=== PATIENT | female | born 1970 | race Asian ===

== ENCOUNTER 2024-07-31 14:46 | Outpatient (AMB) | payer OTHER, SELFPAY ==
--- NOTE | 2024-07-31 14:49 | MHC.PC.OV ---
Vital Signs 07/31/24 14:56 Height 5 ft 3.58 in Weight 146 lb 2 oz BMI 25.4 BP 96/58 L Blood Pressure Location Rt brachial Position Sitting Respiration 12 Pulse 66 Pulse Source Pulse Oximeter Temp 98.2 F Temp Source Oral Pulse Oximetry (%) 96 Oxygen Delivery Method Room Air Intake Visit Reasons: NEW PATIENT APPOINTMENT Intake Note: New patient visit Email Marketing Executive Required: No Allergies acetaminophen [From Percocet] Allergy (Severe, Verified 07/31/24 14:54) Nausea oxycodone [From Percocet] Allergy (Severe, Verified 07/31/24 14:54) Nausea Tobacco use date assessed: 07/31/24 Dental Screening Dental Screen Date: 07/31/24 Did you have a dental visit in the last 12 months?: Yes Did you have a dental problem in the last 6 months where you did not have access to dental care?: No Was dental information given to patient?: Patient has dentist HPI HPI Comments History of Present Illness Details This is a 53 year old female with a past medical history of hypothyroid presenting to [facility] care. She was following at an [facility] facility for primary care in [facility]. Continues to live in [place] but works in [place] She was diagnosed with underactive thyroid a few years ago. Says it was during a lot of stress. She is wondering if she still needs the medication. She has been following with podiatry in [place]. Would like to see someone in [place]. Currently on terbanifine for onychomycoses. Cologuard: less than 3 years ago Mammogram: gets annually in [facility] CONSTITUTIONAL: Denies weight loss, fever and chills. HEENT: Denies changes in vision and hearing. RESPIRATORY: Denies SOB and cough. CV: Denies palpitations and CP GI: Denies abdominal pain, nausea, vomiting and diarrhea. : Denies dysuria and urinary frequency. MSK: Denies new myalgia and joint pain. SKIN: Denies rash and pruritus. NEUROLOGICAL: Denies headache PSYCHIATRIC: Denies recent changes in mood. PHYSICAL EXAM: GENERAL: Alert and oriented x 3. NAD EYES: EOMI. Anicteric. HENT: Moist mucous membranes. No scleral icterus. No cervical lymphadenopathy. LUNGS: Clear to auscultation bilaterally. CARDIOVASCULAR: Regular rate and rhythm. No murmur. No JVD. ABDOMEN: Soft, non-tender +bs EXTREMITIES: No edema. Non-tender. SKIN: No rashes or lesions. Warm. NEUROLOGIC: No focal neurological deficits. CN II-XII grossly intact PSYCHIATRIC: Cooperative. Appropriate mood and affect [facility] Surgical History (Updated 07/31/24 @ 15:38 by Kathia Bowman MD) Status post left partial knee replacement Family History (Updated 07/31/24 @ 14:56 by Roxie Garcia CMA) Other Family history unknown Social History Housing: House Patient Tobacco Use Status: Never used Tobacco e-Cigarette/Vaping Use: Never Used Second Hand Smoke Exposure: No service: No Current occupational status: employed Current occupation: Educator Current occupational exposures/hazards: No Cognitive needs: No Hearing needs: No Vision needs: No Questionnaire PHQ-9 Over the last 2 weeks, how often have you been bothered by any of the following problems? 1. Little interest or pleasure in doing things: not at all 2. Feeling down, depressed, or hopeless: not at all 3. Trouble falling or staying asleep, or sleeping too much: not at all 4. Feeling tired or having little energy: not at all 5. Poor appetite or overeating: not at all 6. Feeling bad about yourself - or that you are a failure or have let yourself or your family down: not at all 7. Trouble concentrating on things, such as reading the newspaper or watching television: not at all 8. Moving or speaking so slowly that other people could have noticed. Or the opposite - being so fidgety or restless that you have been moving around a lot more than usual: not at all 9. Thoughts that you would be better off or of hurting yourself in some way: not at all Total score: 0 Depression Screening Interpretation: Negative (neg) Depression Screening Done: Yes 34388 - PHQ-9 Billing: Yes Source: Developed by Drs. Acosta Ya, Aranza Preciado, Julian Pascual and colleagues, with an educational ezio from [employer]. Thrive Questionnaire Date Thrive assessed: 07/28/24 I am a: Patient What is your living situation today?: I have a steady place to live Within the past 12 months, did the food you bought not last and you didn't have the money to get more?: Never true Within the past 12 months, did you worry whether your food would run out before you got money to buy more?: Never true Do you have trouble paying for medicines?: No Do you have trouble getting transportation to medical appointments?: No Do you have trouble paying your heating and electricity bill?: No Do you have trouble taking care of your child, family member or friend?: No Do you have trouble with day-to-day activities such as bathing, preparing meals, shopping, managing finances, etc.?: No Are you currently unemployed and looking for a job?: No Are you interested in more education?: I choose not to answer this question Please select the resources that you would like help with: None Currently or been in a relationship where the following occur: I choose not to answer THRIVE Score: 0 AUDIT C Alcohol Use Questionnaire (AUDIT-C) 1. How often do you have a drink containing alcohol?: Monthly or less 2. How many drinks containing alcohol do you have on a typical day when you are drinking?: 1 or 2 3. How often do you have six or more drinks on one occasion?: Never Total Score: 1 JIM-7 AMB Questionnaire JIM-7 Date JIM - 7 assessed: 07/31/24 Feeling nervous, anxious, or on edge: 0 = Not at all Not being able to stop or control worryin = Not at all Worrying too much about different things: 0 = Not at all Trouble relaxin = Not at all Being so restless that it is hard to sit still: 0 = Not at all Becoming easily annoyed or irritable: 0 = Not at all Feeling afraid as if something awful might happen: 0 = Not at all Total JIM-7 score (0-4 normal; 5-9 mild; 10-14 moderate; 15-21 severe): 0 Source: Developed by Drs. Acosta Ya, Aranza Preciado, Julian Pascual and colleagues, with an educational ezio from [employer]. JIM-7 Assessment Billing JIM-7 Assessment Tool: JIM-7 Assessment 15566 Physical exam (Primary Care) Vital Signs: Last Vital Signs Temp 98.2 F 07/31/24 14:56 Pulse 66 07/31/24 14:56 Resp 12 07/31/24 14:56 BP 96/58 L 07/31/24 14:56 Pulse Ox 96 07/31/24 14:56 Oxygen Delivery Method Room Air 07/31/24 14:56 BMI result Body Mass Index 25.4 Tobacco/Smoking Status: Tobacco use Status Tobacco use date assessed 07/31/24 07/31/24 14:50 Patient Tobacco Use Status Never used Tobacco 07/31/24 14:50 e-Cigarette/Vaping Use Never Used 07/31/24 14:50 PHQ-9: PHQ-9 Score PHQ-9: Total score 0 08/01/24 19:30 Depression Screening Interpretation: Negative (neg) Thrive Assessment: Date of Thrive Assessment Date Thrive assessed 07/28/24 07/31/24 14:50 Currently or been in a relationship where the following occur: I choose not to answer Assessment and Plan Assessment & Plan (1) Encounter to establish care: Code(s): Z76.89 - Persons encountering health services in other specified circumstances Plan: 53 y/o to establish care. Past medical, surgical, social and family history reviewed . Chart updated (2) Hypothyroid: Code(s): E03.9 - Hypothyroidism, unspecified Qualifiers: Hypothyroidism type: unspecified Qualified Code(s): E03.9 - Hypothyroidism, unspecified Plan: Check TPO, TSH. Discussed possible trial off medications Orders: Orders MM screening mammo BI 07/31/24 Z12.31 - Encounter for screening mammogram for malignant neoplasm of breast TSH reflex Free T4 07/31/24 E03.9 - Hypothyroidism, unspecified Thyroid Peroxidase Antibodies 07/31/24 E03.9 - Hypothyroidism, unspecified Referrals Podiatry Referral M79.671 - Pain in right foot, M79.672 - Pain in left foot, Z98.890 - Other specified postprocedural states Coding Level of Care Code New Pt Level 4 (58084) Complex EM visit Add On G2211 Diagnoses Encounter to establish care Z76.89 Hypothyroidism, unspecified type E03.9 Hypothyroidism type: unspecified Additional Codes JIM-7 Assessment Billing - JIM-7 Assessment Tool: JIM-7 Assessment [id number] ([id number])
[2024-07-31 14:56] VITALS: BP 96/58; PULSE 66; RESP 12; TEMP 36.8; O2SAT 96; BMI 25.4
== END 2024-07-31 15:44 | disposition home or self-care (01) ==
PROVIDERS: Visit Provider Internal Medicine
DX: Z76.89 Persons encountering health services in other specified circumstances (principal); E03.9 Hypothyroidism, unspecified

== ENCOUNTER → 2024-07-31 14:46 | Outpatient (BNVA) | payer OTHER, SELFPAY | PROVIDERS: Visit Provider Internal Medicine | DX: Z76.89 Persons encountering health services in other specified circumstances (principal); E03.9 Hypothyroidism, unspecified | CPT/HCPCS: 96127 ==

== ENCOUNTER 2024-07-31 15:50 | Outpatient (REF) | payer OTHER, SELFPAY ==
[2024-07-31 18:41] LABS: TSH reflex Free T4 3.44 uIU/mL (0.32-4.0)
[2024-08-04 09:44] LABS: Thyroid Peroxidase Antibodies 1 IU/mL (<9)
== END 2024-07-31 15:51 | disposition home or self-care (01) ==
LOC: HO.WFDLDS 15:50
PROVIDERS: Visit Provider Internal Medicine
DX: E03.9 Hypothyroidism, unspecified (principal)
CPT/HCPCS: 36415; 84443; 86376

== ENCOUNTER 2024-09-24 16:07 | Outpatient (AMB) | payer OTHER, SELFPAY ==
--- NOTE | 2024-09-24 16:09 | MHC.PC.OV ---
Vital Signs 09/24/24 16:13 Height 5 ft 3.58 in Weight 147 lb 6 oz BMI 25.6 BP 102/62 Blood Pressure Location Lt brachial Position Sitting Pulse 62 Pulse Source Pulse Oximeter Pulse Oximetry (%) 98 Oxygen Delivery Method Room Air Intake Visit Reasons: PE Intake Note: Physical. 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 She has a history of hypothyroidism diagnosed approximately three years ago, for which she has been treated with levothyroxine 0.75 mcg. Initially, the necessity for treatment was linked to a period of personal stress that could have affected her thyroid hormones. She inquired about discontinuing the medication due to stabilized stress levels and a recent antibody test showing decreased levels. Consequently, she independently decided to alter her medication schedule, dosing every other day instead, which she recently initiated. The patient remains asymptomatic with no current complaints of fatigue, dry skin, or unexplained weight changes, and denies any family history of thyroid disease. In addition, she briefly had anemia in the past but reports no current issues. Patient was informed and verbally consented to the use of an ambient scribe for clinic note documentation during this visit. Mammogram is ordered, and she will schedule this. Referral to Dr. Flash khan for routine visit. Her previous provider retired. She had a negative Cologuard in the past three years. She will schedule an eye exam. Declines influenza vaccine. Patient unsure when she last had tetanus immunization. I sent a message to request records from her prior PCP. ROS: Constitutional: No unexplained weight loss, fever, chills, fatigue or night sweats. Eyes: No vision changes, blurry vision, double vision, eye pain, eye redness, eye discharge. ENT: No hearing loss, sneezing, congestion, runny nose or sore throat. Respiratory: No shortness of breath, cough or sputum production. Cardiovascular: No chest pain, chest pressure or chest discomfort. No palpitations or pedal edema. Gastrointestinal: No anorexia, nausea, vomiting or diarrhea. No abdominal pain or blood in stool. Genitourinary: No dysuria, hematuria, urinary frequency. Neurologic: No headache, dizziness, syncope, unilateral weakness, ataxia, numbness or tingling in the extremities. Musculoskeletal: No muscle pain, back pain, joint pain or swelling. Hematologic/Lymphatics: No bleeding or bruising. No painful lymph nodes. Skin: No rash or itching. Endocrine: No cold or heat intolerance. No polyuria or polydipsia. Psychiatric: No depression or anxiety. No SI/HI. Physical exam: Constitutional: Alert, in no distress. Head: Normocephalic. Eyes: Pupils are equal, round and reactive to light. Extraocular muscles intact. Ear, Nose and Throat: Canals clear. TMs normal. Normal nasal mucosa. No nasal discharge. No oral lesions. Neck: Supple, Full range of motion. No lymphadenopathy. No palpable thyroid masses. Respiratory: Clear to auscultation. Cardiovascular: S1 S2 regular. No murmurs. No carotid bruits. Gastrointestinal: Abdomen soft, non-tender, non-distended. Normal bowel sounds. No palpable masses.. Neurologic: No focal neurological deficits. Symmetric patellar reflexes. Moves all extremities spontaneously. Sensation intact bilaterally. Skin: No rashes or lesions. Musculoskeletal: No gross deformities. Normal range of motion. Extremities: Warm and well perfused. No clubbing, cyanosis or edema. 3+ peripheral pulses bilaterally. Psychiatric: Normal mood and affect [facility] Medical History (Updated 09/24/24 @ 16:36 by MEHRAN Diaz) Routine physical examination Screening for cardiovascular condition Vitamin D deficiency Surgical History Status post left partial knee replacement Family History Other Family history unknown Social History (Updated 09/24/24 @ 16:10 by Roxie Garcia CMA) Housing: House Alcohol intake: current Patient Tobacco Use Status: Never used Tobacco e-Cigarette/Vaping Use: Never Used Second Hand Smoke Exposure: No service: No Current occupational status: employed Current occupation: Educator Current occupational exposures/hazards: No Cognitive needs: No Hearing needs: No Vision needs: No Questionnaire Thrive Questionnaire Date Thrive assessed: 07/28/24 I am a: Patient What is your living situation today?: I have a steady place to live Within the past 12 months, did the food you bought not last and you didn't have the money to get more?: Never true Within the past 12 months, did you worry whether your food would run out before you got money to buy more?: Never true Do you have trouble paying for medicines?: No Do you have trouble getting transportation to medical appointments?: No Do you have trouble paying your heating and electricity bill?: No Do you have trouble taking care of your child, family member or friend?: No Do you have trouble with day-to-day activities such as bathing, preparing meals, shopping, managing finances, etc.?: No Are you currently unemployed and looking for a job?: No Are you interested in more education?: I choose not to answer this question Please select the resources that you would like help with: None Currently or been in a relationship where the following occur: I choose not to answer THRIVE Score: 0 JIM-7 AMB Questionnaire JIM-7 Date JIM - 7 assessed: 07/31/24 Source: Developed by Drs. Acosta Ya, Aranza Preciado, Julian Pascual and colleagues, with an educational ezio from [employer]. Physical exam (Primary Care) Vital Signs: Last Vital Signs Pulse 62 09/24/24 16:13 BP 102/62 09/24/24 16:13 Pulse Ox 98 09/24/24 16:13 Oxygen Delivery Method Room Air 09/24/24 16:13 BMI result Body Mass Index 25.6 Tobacco/Smoking Status: Tobacco use Status Tobacco use date assessed 07/31/24 09/24/24 16:10 Patient Tobacco Use Status Never used Tobacco 09/24/24 16:10 e-Cigarette/Vaping Use Never Used 09/24/24 16:10 Thrive Assessment: Date of Thrive Assessment Date Thrive assessed 07/28/24 09/24/24 16:10 Currently or been in a relationship where the following occur: I choose not to answer Coding Level of Care Code Est Pt Prev Care 40-64y(56373) Diagnoses Routine physical examination Z00.00 Hypothyroidism, unspecified type E03.9 Hypothyroidism type: unspecified Assessment & Plan Assessment & Plan (1) Routine physical examination: Code(s): Z00.00 - Encounter for general adult medical examination without abnormal findings Category: Medical (2) Hypothyroid: Code(s): E03.9 - Hypothyroidism, unspecified Category: Medical Qualifiers: Hypothyroidism type: unspecified Qualified Code(s): E03.9 - Hypothyroidism, unspecified Plan Hypothyroidism: - The patient is currently taking levothyroxine 0.75 mcg every other day following her experimentation with dose adjustment. Plan to recheck thyroid-stimulating hormone (TSH) levels four to six weeks following the modified dosage. The decision to decrease the medication was based on normal antibody test results, and patient remains asymptomatic. The plan would include monitoring TSH levels post-discontinuation and reevaluating if symptomatic. History of anemia: - No active symptoms of anemia currently, patient denies current issues. Routine blood count will be ordered alongside her labs to ensure no recurrence. Health Maintenance: - Recommendations provided for fasting before the next set of lab tests, which will include a complete metabolic panel, lipid profile, and vitamin D levels. Patient instructed on vitamin D and B12 supplementation, and these levels will be rechecked. Follow up for CPE 1 year. Orders: Orders Comprehensive Met. Panel Today E03.9 - Hypothyroidism, unspecified, E55.9 - Vitamin D deficiency, unspecified, Z00.00 - Encounter for general adult medical examination without abnormal findings, Z13.6 - Encounter for screening for cardiovascular disorders Vitamin B12 Today E03.9 - Hypothyroidism, unspecified, E55.9 - Vitamin D deficiency, unspecified, Z00.00 - Encounter for general adult medical examination without abnormal findings, Z13.6 - Encounter for screening for cardiovascular disorders TSH reflex Free T4 Today E03.9 - Hypothyroidism, unspecified, E55.9 - Vitamin D deficiency, unspecified, Z00.00 - Encounter for general adult medical examination without abnormal findings, Z13.6 - Encounter for screening for cardiovascular disorders Complete Blood Count no Diff Today E03.9 - Hypothyroidism, unspecified, E55.9 - Vitamin D deficiency, unspecified, Z00.00 - Encounter for general adult medical examination without abnormal findings, Z13.6 - Encounter for screening for cardiovascular disorders Vitamin D 1,25 dihydroxy Today E03.9 - Hypothyroidism, unspecified, E55.9 - Vitamin D deficiency, unspecified, Z00.00 - Encounter for general adult medical examination without abnormal findings, Z13.6 - Encounter for screening for cardiovascular disorders Lipid Panel Today E03.9 - Hypothyroidism, unspecified, E55.9 - Vitamin D deficiency, unspecified, E78.5 - Hyperlipidemia, unspecified, Z00.00 - Encounter for general adult medical examination without abnormal findings, Z13.6 - Encounter for screening for cardiovascular disorders Referrals ATTIC BLOWER Referral Z00.00 - Encounter for general adult medical examination without abnormal findings
[2024-09-24 16:13] VITALS: BP 102/62; PULSE 62; O2SAT 98; BMI 25.6
== END 2024-09-24 16:50 | disposition home or self-care (01) ==
PROVIDERS: PCP Internal Medicine; Visit Provider Physician Assistant Medical
DX: Z00.00 Encounter for general adult medical examination without abnormal findings (principal); E03.9 Hypothyroidism, unspecified

== ENCOUNTER → 2024-09-24 16:07 | Outpatient (BNVA) | payer OTHER, SELFPAY | PROVIDERS: PCP Internal Medicine; Visit Provider Physician Assistant Medical ==

== ENCOUNTER 2025-09-27 16:01 | Outpatient (AMB) | payer OTHER, SELFPAY ==
--- NOTE | 2025-09-27 16:03 | A.OFFPC_ITS ---
Vital Signs 09/27/25 16:04 Height 5 ft 3.58 in Weight 138 lb 4 oz BMI 24.0 BP 104/78 Blood Pressure Location Rt brachial Position Sitting Respiration 12 Pulse 62 Pulse Source Pulse Oximeter Temp 97.8 F Temp Source Oral Pulse Oximetry (%) 99 Oxygen Delivery Method Room Air Intake Visit Reasons: cpe Intake Note: Physical Orientation And Mobility Specialist Required: No Allergies acetaminophen (From Percocet) Allergy (Severe, Verified 09/27/25 16:06) Nausea oxycodone (From Percocet) Allergy (Severe, Verified 09/27/25 16:06) Nausea Tobacco use date assessed: 09/27/25 Dental Screening Dental Screen Date: 09/27/25 Did you have a dental visit in the last 12 months?: Yes Did you have a dental problem in the last 6 months where you did not have access to dental care?: No Was dental information given to patient?: Patient has dentist HPI HPI Comments History of Present Illness Details This is a 55 year old female with a past medical history of hypothyroid presenting for physical exam She was diagnosed with underactive thyroid a few years ago. Says it was during a lot of stress. Off levothyroxine. Last labs wnl. She was referred last year for podiatry. Completed terbanifine for onychomycoses. Mom this summer from [place] after knee replacement complicated by post op anemia, transfusion reaction, PE then [place]. Cologuard: 07/13/2025 Mammogram: gets annually in [place] at . She is due Plans to do labs at outside facility-printed today ROS CONSTITUTIONAL: Denies weight loss, fever and chills. HEENT: Denies changes in vision and hearing. RESPIRATORY: Denies SOB and cough. CV: Denies palpitations and CP GI: Denies abdominal pain, nausea, vomiting and diarrhea. : Denies dysuria and urinary frequency. MSK: Denies new myalgia and joint pain. SKIN: Denies rash and pruritus. NEUROLOGICAL: Denies headache PSYCHIATRIC: Denies recent changes in mood. PHYSICAL EXAM: GENERAL: Alert and oriented x 3. NAD EYES: EOMI. Anicteric. HENT: Moist mucous membranes. No scleral icterus. No cervical lymphadenopathy. LUNGS: Clear to auscultation bilaterally. CARDIOVASCULAR: Regular rate and rhythm. No JVD. ABDOMEN: Soft, non-tender +bs EXTREMITIES: No edema. Non-tender. SKIN: No rashes or lesions. Warm. NEUROLOGIC: No focal neurological deficits. CN II-XII grossly intact PSYCHIATRIC: Cooperative. Appropriate mood and affect [facility] Medical History Routine physical examination Screening for cardiovascular condition Vitamin D deficiency Surgical History Status post left partial knee replacement Family History Other Family history unknown Social History Housing: House Alcohol intake: current Patient Tobacco Use Status: Never used Tobacco e-Cigarette/Vaping Use: Never Used Second Hand Smoke Exposure: No service: No Current occupational status: employed Current occupation: Educator Current occupational exposures/hazards: No Cognitive needs: No Hearing needs: No Vision needs: No Questionnaire Thrive Questionnaire Date Thrive assessed: 09/23/25 I am a: Patient What is your living situation today?: I have a steady place to live Within the past 12 months, did the food you bought not last and you didn't have the money to get more?: Never true Within the past 12 months, did you worry whether your food would run out before you got money to buy more?: Never true Do you have trouble paying for medicines?: No Do you have trouble getting transportation to medical appointments?: No Do you have trouble paying your heating and electricity bill?: No Do you have trouble taking care of your child, family member or friend?: No Do you have trouble with day-to-day activities such as bathing, preparing meals, shopping, managing finances, etc.?: No Are you currently unemployed and looking for a job?: No Are you interested in more education?: Yes Please select the resources that you would like help with: None Currently or been in a relationship where the following occur: No concerns reported THRIVE Score: 0 AUDIT C Alcohol Use Questionnaire (AUDIT-C) 1. How often do you have a drink containing alcohol?: Monthly or less 2. How many drinks containing alcohol do you have on a typical day when you are drinking?: 1 or 2 3. How often do you have six or more drinks on one occasion?: Never Total Score: 1 JIM-7 AMB Questionnaire JIM-7 Date JIM - 7 assessed: 07/31/24 Feeling nervous, anxious, or on edge: 0 = Not at all Not being able to stop or control worryin = Not at all Worrying too much about different things: 0 = Not at all Trouble relaxin = Not at all Being so restless that it is hard to sit still: 0 = Not at all Becoming easily annoyed or irritable: 0 = Not at all Feeling afraid as if something awful might happen: 0 = Not at all Total JIM-7 score (0-4 normal; 5-9 mild; 10-14 moderate; 15-21 severe): 0 Source: Developed by Drs. Acosta Ya, Aranza Preicado, Julian Pascual and colleagues, with an educational ezio from [employer]. Physical exam (Primary Care) Vital Signs: Last Vital Signs Temp 97.8 F 09/27/25 16:04 Pulse 62 09/27/25 16:04 Resp 12 09/27/25 16:04 BP 104/78 09/27/25 16:04 Pulse Ox 99 09/27/25 16:04 Oxygen Delivery Method Room Air 09/27/25 16:04 BMI result Body Mass Index 24.0 Tobacco/Smoking Status: Tobacco use Status Tobacco use date assessed 09/27/25 09/27/25 16:09 Patient Tobacco Use Status Never used Tobacco 09/27/25 16:09 e-Cigarette/Vaping Use Never Used 09/27/25 16:09 Thrive Assessment: Date of Thrive Assessment Date Thrive assessed 09/23/25 09/27/25 16:09 Currently or been in a relationship where the following occur: No concerns reported Coding Level of Care Code Est Pt Level 4 (85204) Diagnoses Routine physical examination Z00.00 Hypothyroidism, unspecified type E03.9 Hypothyroidism type: unspecified Vitamin D deficiency E55.9 Assessment & Plan Assessment & Plan (1) Routine physical examination: Code(s): Z00.00 - Encounter for general adult medical examination without abnormal findings Category: Medical (2) Hypothyroid: Code(s): E03.9 - Hypothyroidism, unspecified Category: Medical Qualifiers: Hypothyroidism type: unspecified Qualified Code(s): E03.9 - Hypoth yroidism, unspecified (3) Vitamin D deficiency: Code(s): E55.9 - Vitamin D deficiency, unspecified Category: Medical Plan 55 year old female presenting for CPE Interval history reviewed Preventive measures for age discussed Labs ordered. Mammo order printed and sent. Cologuard is UTD Orders: Orders TSH reflex Free T4 09/27/25 E03.9 - Hypothyroidism, unspecified, E55.9 - Vitamin D deficiency, unspecified, R35.89 - Other polyuria, Z13.220 - Encounter for screening for lipoid disorders, Z13.228 - Encounter for screening for other metabolic disorders, Z13.6 - Encounter for screening for cardiovascular disorders Complete Blood Count Auto Diff 09/27/25 E03.9 - Hypothyroidism, unspecified, E55.9 - Vitamin D deficiency, unspecified, R35.89 - Other polyuria, Z13.220 - Encounter for screening for lipoid disorders, Z13.228 - Encounter for screening for other metabolic disorders, Z13.6 - Encounter for screening for cardiovascular disorders Comprehensive Met. Panel 09/27/25 E03.9 - Hypothyroidism, unspecified, E55.9 - Vitamin D deficiency, unspecified, R35.89 - Other polyuria, Z13.220 - Encounter for screening for lipoid disorders, Z13.228 - Encounter for screening for other metabolic disorders, Z13.6 - Encounter for screening for cardiovascular disorders Lipid Panel 09/27/25 E03.9 - Hypothyroidism, unspecified, E55.9 - Vitamin D deficiency, unspecified, R35.89 - Other polyuria, Z13.220 - Encounter for screening for lipoid disorders, Z13.228 - Encounter for screening for other metabolic disorders, Z13.6 - Encounter for screening for cardiovascular disorders Thyroid Peroxidase Antibodies 09/27/25 E03.9 - Hypothyroidism, unspecified, E55.9 - Vitamin D deficiency, unspecified, R35.89 - Other polyuria, Z13.220 - Encounter for screening for lipoid disorders, Z13.228 - Encounter for screening for other metabolic disorders, Z13.6 - Encounter for screening for cardiovascular disorders Hemoglobin A1c 09/27/25 E03.9 - Hypothyroidism, unspecified, E55.9 - Vitamin D deficiency, unspecified, R35.89 - Other polyuria, Z13.220 - Encounter for screening for lipoid disorders, Z13.228 - Encounter for screening for other metabolic disorders, Z13.6 - Encounter for screening for cardiovascular disorders Vitamin B12 and Folate 09/27/25 E03.9 - Hypothyroidism, unspecified, E55.9 - Vitamin D deficiency, unspecified, R35.89 - Other polyuria, Z13.220 - Encounter for screening for lipoid disorders, Z13.228 - Encounter for screening for other metabolic disorders, Z13.6 - Encounter for screening for cardiovascular disorders IRON PROFILE 09/27/25 E03.9 - Hypothyroidism, unspecified, E55.9 - Vitamin D deficiency, unspecified, R35.89 - Other polyuria, Z13.220 - Encounter for screening for lipoid disorders, Z13.228 - Encounter for screening for other metabolic disorders, Z13.6 - Encounter for screening for cardiovascular disorders MM tomosynthesis screening BI 09/27/25 Z12.31 - Encounter for screening mammogram for malignant neoplasm of breast Vitamin D 1,25 dihydroxy 09/27/25 E55.9 - Vitamin D deficiency, unspecified
[2025-09-27 16:04] VITALS: BP 104/78; PULSE 62; RESP 12; TEMP 36.6; O2SAT 99; BMI 24.0
== END 2025-09-27 16:39 | disposition home or self-care (01) ==
LOC: HO.HMCFM 16:02
PROVIDERS: PCP Internal Medicine; Visit Provider Internal Medicine
DX: Z00.00 Encounter for general adult medical examination without abnormal findings (principal); E03.9 Hypothyroidism, unspecified; E55.9 Vitamin D deficiency, unspecified